=== PATIENT | male | born 1965 | race Caucasian/White ===

== ENCOUNTER 2019-02-17 19:32 | Emergency (ER) | payer SELFPAY ==
[~2019-02-17] VITALS: Ht 175.3 cm; Wt 79.4 kg
[~2019-02-17 19:32] MED LIST: HYDACE5 PO
[2019-02-17] MEDS ORDERED: PENVK500 PO (21:05)
== END 2019-02-17 21:32 | disposition home or self-care (01) ==
LOC: ER 19:32
DX: K04.7 Periapical abscess without sinus (principal); F41.0 Panic disorder [episodic paroxysmal anxiety]; M06.9 Rheumatoid arthritis, unspecified; F17.210 Nicotine dependence, cigarettes, uncomplicated
CPT/HCPCS: 99282